=== PATIENT | male | born 1945 | race Caucasian/White ===

== ENCOUNTER 2016-12-10 11:02 | Outpatient (CLI) | payer MEDICARE, BC | END 2016-12-10 11:03 | disposition home or self-care (01) | DX: G47.33 Obstructive sleep apnea (adult) (pediatric) (principal) | CPT/HCPCS: 99203; G0463 ==

== ENCOUNTER 2017-01-31 20:23 | Outpatient (CLI) | payer MEDICARE, BC | END 2017-01-31 20:24 | disposition home or self-care (01) | DX: G47.33 Obstructive sleep apnea (adult) (pediatric) (principal); Z68.26 Body mass index [BMI] 26.0-26.9, adult ==

== ENCOUNTER 2017-02-25 15:00 | Outpatient (CLI) | payer MEDICARE, BC | END 2017-02-25 15:01 | disposition home or self-care (01) | DX: G47.33 Obstructive sleep apnea (adult) (pediatric) (principal) | CPT/HCPCS: 99213; G0463 ==

== ENCOUNTER 2017-03-18 19:47 | Outpatient (CLI) | payer MEDICARE, BC | END 2017-03-18 19:48 | disposition home or self-care (01) | DX: G47.33 Obstructive sleep apnea (adult) (pediatric) (principal); G47.61 Periodic limb movement disorder; Z68.26 Body mass index [BMI] 26.0-26.9, adult ==

== ENCOUNTER 2017-04-18 13:36 | Outpatient (CLI) | payer MEDICARE, BC | END 2017-04-18 13:37 | disposition home or self-care (01) | LOC: SC 13:36 | PROVIDERS: ATTEND Internal Medicine Pulmonary Disease | DX: G47.33 Obstructive sleep apnea (adult) (pediatric) (principal) | CPT/HCPCS: 99213; G0463; 99212 ==

== ENCOUNTER 2017-06-11 10:08 | Outpatient (CLI) | payer MEDICARE, BC | END 2017-06-11 10:09 | disposition home or self-care (01) | LOC: SC 10:08 | PROVIDERS: ATTEND Internal Medicine Pulmonary Disease | DX: G47.33 Obstructive sleep apnea (adult) (pediatric) (principal) | CPT/HCPCS: 99213; G0463; 99212 ==

== ENCOUNTER 2017-07-02 08:42 | Outpatient (CLI) | payer MEDICARE, BC ==
[2017-07-02 10:28] LABS: EOSINOPHILS % (AUTO) 0.7 %; HCT - HEMATOCRIT 40.4 % (42.0-52.0); HGB - HEMOGLOBIN 13.7 g/dL (14.0-18.0); LYMPHOCYTES # (AUTO) 1.5 10^3/uL (1.5-3.5); LYMPHOCYTES % (AUTO) 33.3 %; MEAN CORPUSCULAR HEMOGLOBIN 33.4 pg (27.0-31.0); MEAN CORPUSCULAR VOLUME 98.4 fL (80.0-94.0); MEAN PLATELET VOLUME 7.9 fL (7.4-11.4); MONOCYTES # (AUTO) 0.4 10^3/uL (0.0-1.0); MONOCYTES % (AUTO) 8.5 %; NEUTROPHILS # (AUTO) 2.5 10^3/uL (1.5-6.6); NEUTROPHILS % (AUTO) 56.5 %; NUCLEATED RED BLOOD CELLS AUTO 0.1 /100WBC; RED BLOOD COUNT 4.11 10^6/uL (4.70-6.10); RED CELL DISTRIBUTION WIDTH 12.5 % (12.0-15.0); UNCORRECTED WHITE BLOOD COUNT 4.5 x10^3/uL; WHITE BLOOD COUNT 4.5 x10^3/uL (4.8-10.8)
[2017-07-02 11:56] LABS: ALBUMIN/GLOBULIN RATIO 1.6 (1.0-2.2); BILIRUBIN,TOTAL 0.8 mg/dL (0.2-1.0); BUN - BLOOD UREA NITROGEN 16 mg/dL (6-20); CALCIUM 9.1 mg/dL (8.5-10.3); CARBON DIOXIDE - CO2 29 mmol/L (21-32); CHLORIDE 105 mmol/L (101-111); CHOL/HDL RATIO 2.1 (<5.0); CHOLESTEROL 195 mg/dL; CREATININE 0.8 mg/dL (0.6-1.2); GFR - MDRD 95 (>89); GLUCOSE 100 mg/dL (70-100); HDL CHOLESTEROL 93 mg/dL; POTASSIUM 4.2 mmol/L (3.5-5.0); SODIUM 140 mmol/L (135-145); TOTAL PROTEIN 6.9 g/dL (6.7-8.2); TRIGLYCERIDES 26 mg/dL
[2017-07-02 12:17] LABS: LDL CHOLESTEROL,DIRECT 89 mg/dL
== END 2017-07-02 08:43 | disposition home or self-care (01) ==
LOC: LAB.F 08:42
PROVIDERS: ATTEND Internal Medicine
DX: E55.9 Vitamin D deficiency, unspecified (principal); Z12.5 Encounter for screening for malignant neoplasm of prostate
CPT/HCPCS: 36415; 80053; 80061; 82306; 83721; 85025; G0103; 84153

== ENCOUNTER 2017-07-22 09:24 | Outpatient (CLI) | payer MEDICARE, BC | END 2017-07-22 09:25 | disposition home or self-care (01) | LOC: SC 09:24 | PROVIDERS: ATTEND Internal Medicine Pulmonary Disease | DX: G47.33 Obstructive sleep apnea (adult) (pediatric) (principal) | CPT/HCPCS: 99213; G0463; 99212 ==

== ENCOUNTER 2018-07-07 13:09 | Outpatient (CLI) | payer MEDICARE, BC | END 2018-07-07 13:10 | disposition home or self-care (01) | LOC: SC 13:09 | PROVIDERS: ATTEND Internal Medicine Pulmonary Disease | DX: G47.33 Obstructive sleep apnea (adult) (pediatric) (principal) | CPT/HCPCS: 99213; G0463; 99212 ==

== ENCOUNTER 2018-08-29 07:05 | Outpatient (CLI) | payer MEDICARE, BC ==
[2018-08-29 10:44] LABS: ALBUMIN/GLOBULIN RATIO 1.5 (1.0-2.2); ALKALINE PHOSPHATASE 63 IU/L (42-121); ALT ALANINE AMINOTRANSFERASE 16 IU/L (10-60); AST ASPARTATE AMINOTRANSFERASE 20 IU/L (10-42); BILIRUBIN,TOTAL 1.1 mg/dL (0.2-1.0); BUN - BLOOD UREA NITROGEN 16 mg/dL (6-20); CALCIUM 9.1 mg/dL (8.5-10.3); CARBON DIOXIDE - CO2 30 mmol/L (21-32); CHLORIDE 101 mmol/L (101-111); CHOL/HDL RATIO 1.9 (<5.0); CHOLESTEROL 194 mg/dL; CREATININE 0.8 mg/dL (0.6-1.2); GFR - MDRD 95 (>89); GLUCOSE 100 mg/dL (70-100); HDL CHOLESTEROL 101 mg/dL; SODIUM 138 mmol/L (135-145); TOTAL PROTEIN 6.6 g/dL (6.7-8.2)
[2018-08-29 11:06] LABS: LDL CHOLESTEROL,DIRECT 77 mg/dL; LDLD/HDL RATIO 0.8 (<3.6)
[2018-08-29 17:38] LABS: BASOPHILS # (AUTO) 0.1 10^3/uL (0.0-0.1); BASOPHILS % (AUTO) 1.2 %; EOSINOPHILS # (AUTO) 0.1 10^3/uL (0.0-0.7); EOSINOPHILS % (AUTO) 2.6 %; HGB - HEMOGLOBIN 14.1 g/dL (14.0-18.0); LYMPHOCYTES % (AUTO) 45.9 %; MEAN CORPUSCULAR HEMOGLOBIN 33.8 pg (27.0-31.0); MEAN CORPUSCULAR HGB CONC 33.9 g/dL (32.0-36.0); MEAN CORPUSCULAR VOLUME 99.7 fL (80.0-94.0); MEAN PLATELET VOLUME 8.2 fL (7.4-11.4); MONOCYTES # (AUTO) 0.4 10^3/uL (0.0-1.0); MONOCYTES % (AUTO) 9.1 %; NEUTROPHILS # (AUTO) 1.8 10^3/uL (1.5-6.6); NEUTROPHILS % (AUTO) 41.2 %; PLT - PLATELET COUNT 217 10^3/uL (130-450); RED BLOOD COUNT 4.18 10^6/uL (4.70-6.10); RED CELL DISTRIBUTION WIDTH 12.7 % (12.0-15.0); WHITE BLOOD COUNT 4.4 x10^3/uL (4.8-10.8)
== END 2018-08-29 07:06 | disposition home or self-care (01) ==
LOC: LAB.F 07:05
PROVIDERS: ATTEND Internal Medicine
DX: D68.2 Hereditary deficiency of other clotting factors (principal); E55.9 Vitamin D deficiency, unspecified; N40.0 Benign prostatic hyperplasia without lower urinary tract symptoms; E78.5 Hyperlipidemia, unspecified; Z12.5 Encounter for screening for malignant neoplasm of prostate
CPT/HCPCS: 36415; 80053; 80061; 82306; 83721; 84443; 85025; G0103; 84153

== ENCOUNTER 2019-09-11 07:15 | Outpatient (CLI) | payer MEDICARE, BC ==
[2019-09-11 10:51] LABS: HGB - HEMOGLOBIN 13.4 g/dL (14.0-18.0); MEAN CORPUSCULAR HEMOGLOBIN 33.9 pg (27.0-31.0); MEAN CORPUSCULAR HGB CONC 34.1 g/dL (32.0-36.0); MEAN CORPUSCULAR VOLUME 99.5 fL (80.0-94.0); MEAN PLATELET VOLUME 9.8 fL (7.4-11.4); RED BLOOD COUNT 3.95 10^6/uL (4.70-6.10); RED CELL DISTRIBUTION WIDTH 11.9 % (12.0-15.0)
[2019-09-11 11:09] LABS: ALBUMIN 3.9 g/dL (3.2-5.5); ALBUMIN/GLOBULIN RATIO 1.6 (1.0-2.2); ALKALINE PHOSPHATASE 59 IU/L (42-121); ALT ALANINE AMINOTRANSFERASE 17 IU/L (10-60); AST ASPARTATE AMINOTRANSFERASE 26 IU/L (10-42); BUN - BLOOD UREA NITROGEN 17 mg/dL (6-20); CALCIUM 9.1 mg/dL (8.5-10.3); CARBON DIOXIDE - CO2 29 mmol/L (21-32); CHLORIDE 107 mmol/L (101-111); CHOL/HDL RATIO 1.9 (<5.0); CHOLESTEROL 172 mg/dL; CREATININE 0.9 mg/dL (0.6-1.2); GFR - MDRD 82 (>89); GLUCOSE 102 mg/dL (70-100); HDL CHOLESTEROL 91 mg/dL; SODIUM 141 mmol/L (135-145); TOTAL PROTEIN 6.4 g/dL (6.7-8.2)
== END 2019-09-11 07:16 | disposition home or self-care (01) ==
LOC: LAB.S 07:15
PROVIDERS: ATTEND Internal Medicine
DX: E78.5 Hyperlipidemia, unspecified (principal); Z12.5 Encounter for screening for malignant neoplasm of prostate; D68.2 Hereditary deficiency of other clotting factors
CPT/HCPCS: 36415; 80053; 80061; 85027; G0103; 83721; 84153

== ENCOUNTER 2019-10-20 11:01 | Outpatient (CLI) | payer MEDICARE, BC ==
--- NOTE | 2019-10-20 11:43 | SLEEP CARE CONSULTATION ---
Information from patient questionnaire entered by Vilma Bradley. I have reviewed and concur with the information entered by Vilma Bradley. This document represents the service I personally performed and the decisions made by me, Chapin Henry MD, [facility]. History of Present Illness Previous diagnosis: Severe, Obstructive Sleep Apnea-Hypopnea Syndrome AHI: 31.3 Reason for follow up: annual Equipment type: CPAP Equipment obtained from: [employer] Prior sleep studies: Yes HPI additional information: HPI: Mr. Richards was diagnosed to have severe obstructive sleep apnea-hypopnea syndrome and returns today for annual follow up of CPAP therapy. The patient gets his supplies from [employer] and was fitted with a Respironics DreamWear nasal cushion mask. He continues to use the device nightly and all through the night. The compliance report shows that he uses the device 179 nights out of the past 180 nights, averaging 7.2 hours a night. The > 4 hour compliance rate for the past 180 days is 97.8%. He complains of not getting supplies but no particular problem with the device such as soreness on the face, dry nose, epistaxis, nasal congestion or headache. He thinks that the pressure of 5 - 9 cmH2O is comfortable. On the CPAP therapy he notices improvement in his sleep quality, and that he wakes up feeling fresher in the morning and more awake/alert during the day. [place] Sleepiness Scale score is 4. His notices no snore at all. The average residual AHI is 3.3 (was 3.4); and large leak, 0 L/min. CPAP Compliance Data - Data Reviewed with Patient Average duration of nightly device use: 7H 11M Compliance rate %: 97.8 Current pressure setting (cmH2O): 5-9 Humidity settin Heated hose settin Average residual AHI: 3.3 Average large leak: 0s Subjective Current pressure setting perceived as: comfortable Initial [place] Sleepiness Scale score: 6 Current [place] Sleepiness Scale score: 4 Allergies and Home Medications Drug allergies reviewed: Yes Home medication list reviewed: Yes Review of Systems Review of systems same as previous: Yes Physical Exam Weight: 185 lb Impression and Plan IMPRESSION: 1. Obstructive Sleep Apnea-Hypopnea Syndrome, severe, with the patient continuing to do well on nasal CPAP therapy. He has excellent compliance and significant clinical benefits. The current pressure appears effective and comfortable. Overall, he is very satisfied with treatment and plans to continue with it long-term. A new prescription will be made for supplies so that he may switch durable medical supplier. PLAN: 1. Continue with nasal CPAP therapy set at 5 - 9 cm H2O. 2. Try ResMed N30i mask 3. Prescription made for CPAP supplies and faxed to [employer] per patients request. 4. Return in one year for follow up or earlier if there is any problem with the treatment. I spent 100% of this 20 minute visit face to face with the patient with greater than 50% of this was spent time counseling the patient and coordination of care.
== END 2019-10-20 11:02 | disposition home or self-care (01) ==
LOC: SC 11:01
PROVIDERS: ATTEND Internal Medicine Pulmonary Disease
DX: G47.33 Obstructive sleep apnea (adult) (pediatric) (principal)
CPT/HCPCS: 99213; G0463; 99212

== ENCOUNTER 2019-11-27 08:26 | Outpatient (CLI) | payer MEDICARE, BC ==
[2019-11-27 10:50] LABS: RHEUMATOID FACTOR NEGATIVE (Negative)
== END 2019-11-27 08:27 | disposition home or self-care (01) ==
LOC: LAB.S 08:26
PROVIDERS: ATTEND Internal Medicine Rheumatology
DX: M25.50 Pain in unspecified joint (principal)
CPT/HCPCS: 36415; 85651; 86140; 86200; 86430

== ENCOUNTER 2020-11-01 13:21 | Outpatient (CLI) | payer MEDICARE, BC ==
--- NOTE | 2020-11-01 23:17 | SLEEP CARE CONSULTATION ---
Information from patient questionnaire entered by Rekha Plasencia. I have reviewed and concur with the information entered by Rekha Plasencia. This document represents the service I personally performed and the decisions made by me, Chapin Henry MD, [facility]. History of Present Illness Service Date and Time: 11/01/2020 1321 Previous diagnosis: Severe, Obstructive Sleep Apnea-Hypopnea Syndrome AHI: 31.3 (in 2017)(8.2 in 1989) Reason for follow up: annual (last seen 10/2019) Equipment type: CPAP Equipment obtained from: [employer] Prior sleep studies: Yes Year and Where: 2017 - [facility] Type of Sleep Study: Polysomnography HPI additional information: HPI: Mr. Richards was diagnosed to have severe obstructive sleep apnea-hypopnea syndrome and returns today for annual follow up of CPAP therapy. The patient gets his supplies from [employer]. He switched from a Respironics DreamWear nasal cushion mask to a ResMed N30i mask and found it more comfortable. He continues to use the device nightly and all through the night. The compliance report shows that he uses the device 180 nights out of the past 180 nights, averaging 7.1 hours a night. The > 4 hour compliance rate for the past 180 days is 100%. He complains of not getting supplies but no particular problem with the device such as soreness on the face, dry nose, epistaxis, nasal congestion or headache. He thinks that the pressure of 5 - 9 cmH2O is comfortable. On the CPAP therapy he notices improvement in his sleep quality, and that he wakes up feeling fresher in the morning and more awake/alert during the day. [place] Sleepiness Scale score is 3. His notices no snore at all. The average residual AHI is 3.1 (was 3.4); and average time in large leak per day is 0 second. The 90th percentile pressure is 8.3 cmH2O. CPAP Compliance Data - Data Reviewed with Patient Average duration of nightly device use: 7 hr 8 min Compliance rate %: 100 (180 days) Current pressure setting (cmH2O): 5-9 Humidity settin Heated hose settin Average residual AHI: 3.1 Average large leak: 0 Subjective Initial [place] Sleepiness Scale score: 6 (in 2017) Allergies and Home Medications Drug allergies reviewed: Yes Home medication list reviewed: Yes Review of Systems Review of systems same as previous: Yes Physical Exam Vital signs obtained and entered by: To minimize the risk of COVID-19 exposure, detailed exam was not performed. Height: 5 ft 10 in Weight: 185 lb Body Mass Index: 26.5 BMI Classification: Overweight Impression and Plan IMPRESSION: 1. Obstructive Sleep Apnea-Hypopnea Syndrome, severe, with the patient continuing to do well on nasal CPAP therapy. He has excellent compliance and significant clinical benefits. The current pressure appears effective and comfortable. Overall, he is very satisfied with treatment and plans to continue with it long-term. No adjustment is necessary today. PLAN: 1. Continue with nasal CPAP therapy set at 5 - 9 cm H2O. 2. Return in one year for follow up or earlier if there is any problem with the treatment. Visit Type: In Office Time Spent with Patient (minutes): 15 Provider Statement: I spent 100% of the Face to Face Visit with the patient with greater than 50% spent counseling the patient and coordination of care.
== END 2020-11-01 13:22 | disposition home or self-care (01) ==
LOC: SC 13:21
PROVIDERS: ATTEND Internal Medicine Pulmonary Disease
DX: G47.33 Obstructive sleep apnea (adult) (pediatric) (principal); E66.3 Overweight; Z68.26 Body mass index [BMI] 26.0-26.9, adult
CPT/HCPCS: 99213; G0463; 99212

== ENCOUNTER 2020-12-26 08:33 | Outpatient (CLI) | payer MEDICARE, BC ==
[2020-12-26 14:55] LABS: BASOPHILS % (AUTO) 0.8 %; EOSINOPHILS % (AUTO) 0.4 %; HGB - HEMOGLOBIN 13.9 g/dL (14.0-18.0); LYMPHOCYTES # (AUTO) 1.5 10^3/uL (1.5-3.5); LYMPHOCYTES % (AUTO) 28.2 %; MEAN CORPUSCULAR HEMOGLOBIN 33.6 pg (27.0-31.0); MEAN CORPUSCULAR HGB CONC 33.1 g/dL (32.0-36.0); MEAN CORPUSCULAR VOLUME 101.4 fL (80.0-94.0); MONOCYTES # (AUTO) 0.3 10^3/uL (0.0-1.0); MONOCYTES % (AUTO) 6.5 %; NEUTROPHILS # (AUTO) 3.3 10^3/uL (1.5-6.6); NEUTROPHILS % (AUTO) 63.9 %; PLT - PLATELET COUNT 221 10^3/uL (130-450); RED BLOOD COUNT 4.14 10^6/uL (4.70-6.10); RED CELL DISTRIBUTION WIDTH 12.4 % (12.0-15.0); WHITE BLOOD COUNT 5.2 x10^3/uL (4.8-10.8)
[2020-12-26 15:29] LABS: ALBUMIN 4.2 g/dL (3.2-5.5); ALBUMIN/GLOBULIN RATIO 1.6 (1.0-2.2); ALKALINE PHOSPHATASE 61 IU/L (42-121); ALT ALANINE AMINOTRANSFERASE 19 IU/L (10-60); AST ASPARTATE AMINOTRANSFERASE 23 IU/L (10-42); BUN - BLOOD UREA NITROGEN 13 mg/dL (6-20); CALCIUM 9.2 mg/dL (8.5-10.3); CARBON DIOXIDE - CO2 24 mmol/L (21-32); CHLORIDE 101 mmol/L (101-111); CHOL/HDL RATIO 1.8 (<5.0); CHOLESTEROL 195 mg/dL; CREATININE 0.8 mg/dL (0.6-1.2); GLUCOSE 108 mg/dL (70-100); HDL CHOLESTEROL 107 mg/dL; TOTAL PROTEIN 6.8 g/dL (6.7-8.2)
== END 2020-12-26 08:34 | disposition home or self-care (01) ==
LOC: LAB.S 08:33
PROVIDERS: ATTEND Internal Medicine
DX: E78.5 Hyperlipidemia, unspecified (principal); Z12.5 Encounter for screening for malignant neoplasm of prostate; D53.9 Nutritional anemia, unspecified
CPT/HCPCS: 36415; 80053; 80061; 85025; G0103; 83721; 84153

== ENCOUNTER 2021-07-25 07:32 | Outpatient (CLI) | payer MEDICARE, BC ==
[2021-07-25 14:35] LABS: BASOPHILS % (AUTO) 0.6 %; EOSINOPHILS # (AUTO) 0.1 10^3/uL (0.0-0.7); EOSINOPHILS % (AUTO) 1.3 %; HCT - HEMATOCRIT 41.5 % (42.0-52.0); HGB - HEMOGLOBIN 13.5 g/dL (14.0-18.0); LYMPHOCYTES # (AUTO) 1.5 10^3/uL (1.5-3.5); LYMPHOCYTES % (AUTO) 31.5 %; MEAN CORPUSCULAR HEMOGLOBIN 33.3 pg (27.0-31.0); MEAN CORPUSCULAR HGB CONC 32.5 g/dL (32.0-36.0); MEAN CORPUSCULAR VOLUME 102.5 fL (80.0-94.0); MONOCYTES # (AUTO) 0.5 10^3/uL (0.0-1.0); MONOCYTES % (AUTO) 9.7 %; NEUTROPHILS # (AUTO) 2.6 10^3/uL (1.5-6.6); NEUTROPHILS % (AUTO) 56.7 %; PLT - PLATELET COUNT 218 10^3/uL (130-450); RED BLOOD COUNT 4.05 10^6/uL (4.70-6.10); RED CELL DISTRIBUTION WIDTH 12.6 % (12.0-15.0); WHITE BLOOD COUNT 4.6 x10^3/uL (4.8-10.8)
[2021-07-25 14:53] LABS: ALBUMIN 3.9 g/dL (3.2-5.5); ALBUMIN/GLOBULIN RATIO 1.4 (1.0-2.2); ALKALINE PHOSPHATASE 59 IU/L (42-121); ALT ALANINE AMINOTRANSFERASE 16 IU/L (10-60); AST ASPARTATE AMINOTRANSFERASE 20 IU/L (10-42); BILIRUBIN,TOTAL 0.9 mg/dL (0.2-1.0); BUN - BLOOD UREA NITROGEN 17 mg/dL (6-20); CARBON DIOXIDE - CO2 28 mmol/L (21-32); CHLORIDE 102 mmol/L (101-111); CHOLESTEROL 180 mg/dL; CREATININE 0.8 mg/dL (0.6-1.2); GFR - MDRD 94 (>89); GLUCOSE 103 mg/dL (70-100); HDL CHOLESTEROL 91 mg/dL; LDL CHOLESTEROL,CALCULATED 81 mg/dL; LDL/HDL RATIO 0.9 (<3.6); POTASSIUM 4.3 mmol/L (3.5-5.0); SODIUM 137 mmol/L (135-145); TOTAL PROTEIN 6.6 g/dL (6.7-8.2); TRIGLYCERIDES 40 mg/dL; VLDL CHOLESTEROL 8 mg/dL
== END 2021-07-25 07:33 | disposition home or self-care (01) ==
LOC: LAB.S 07:32
PROVIDERS: ATTEND Internal Medicine
DX: Z79.899 Other long term (current) drug therapy (principal); Z12.5 Encounter for screening for malignant neoplasm of prostate; E78.5 Hyperlipidemia, unspecified; D53.9 Nutritional anemia, unspecified
CPT/HCPCS: 36415; 80053; 80061; 85025; G0103; 83721; 84153

== ENCOUNTER 2021-08-29 13:44 | Outpatient (CLI) | payer MEDICARE, BC ==
--- NOTE | 2021-08-29 16:04 | XRAY Report ---
PROCEDURE: Lumbar Spine w/Flex/Ext INDICATIONS: LOW BACK PAIN TECHNIQUE: 6 views of the lumbar spine acquired. COMPARISON: None. FINDINGS: L-SPINE: 5 [id number] vertebrae are present. Levocurvature of the thoracic lumbar spine, which may reflect degenerative change. Leftward disc height loss at L1-3 with associated endplate changes. Grade 1 anterolisthesis at L4-5, unchanged with flexion or extension. The sacroiliac joints appear patent. SOFT TISSUES: No focal abnormality. IMPRESSION: 1.No acute osseous abnormality. Reviewed by: Theron Watson MD on 08/29/2021 4:03 PM PDT Approved by: Theron Watson MD on 08/29/2021 4:03 PM PDT Station ID: [id number]
--- NOTE | 2021-08-30 11:24 | XRAY Report ---
PROCEDURE: Hand 3 View BILAT INDICATIONS: BILAT JOINT HAND PAIN TECHNIQUE: 3 views of each hand acquired. COMPARISON: None. FINDINGS: Bones: No fractures or dislocations. There is bilateral narrowing of the interphalangeal joints, in cluding severe narrowing of the right fifth proximal and distal and fourth distal interphalangeal sabas nts as well as severe narrowing of the left second through fifth distal interphalangeal joints. Moder ate to severe narrowing demonstrated within the remaining interphalangeal joints. There are associate d subchondral sclerosis and subchondral cystic changes. Gullwing deformities are demonstrated in the second through fifth distal interphalangeal joints bilaterally. No definite bony erosions. The joint spaces within the metacarpophalangeal and carpal joints appear preserved. Soft tissues: There is periarticular soft tissue swelling along the interphalangeal joints. No suspi cious soft tissue calcifications. IMPRESSION: 1. 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 Reviewed by: Lan Joseph MD on 08/30/2021 11:23 AM PDT Approved by: Lan Joseph MD on 08/30/2021 11:23 AM PDT Station ID: [id number]
== END 2021-08-29 13:45 | disposition home or self-care (01) ==
LOC: DI.S 13:44
PROVIDERS: ATTEND Internal Medicine
DX: M19.042 Primary osteoarthritis, left hand (principal); M19.041 Primary osteoarthritis, right hand; M54.50 Low back pain, unspecified

== ENCOUNTER 2021-09-22 10:45 | Outpatient (CLI) | payer MEDICARE, BC ==
[2021-09-22 17:32] LABS: RHEUMATOID FACTOR NEGATIVE (Negative)
== END 2021-09-22 10:46 | disposition home or self-care (01) ==
LOC: LAB.S 10:45
PROVIDERS: ATTEND Internal Medicine Rheumatology
DX: M79.643 Pain in unspecified hand (principal)
CPT/HCPCS: 36415; 85651; 86140; 86200; 86430

== ENCOUNTER 2022-02-19 10:39 | Outpatient (CLI) | payer MEDICARE, BC ==
--- NOTE | 2022-02-19 12:14 | SLEEP CARE CONSULTATION ---
Information from patient questionnaire entered by Arminda Stewart MA. I have reviewed and concur with the information entered by Arminda Stewart MA. This document represents the service I personally performed and the decisions made by me, Chapin Henry MD, [facility]. History of Present Illness Service Date and Time: 02/19/2022 1039 Previous diagnosis: Severe, Obstructive Sleep Apnea-Hypopnea Syndrome AHI: 31.3 (in 2017)(8.2 in 1989) Reason for follow up: annual (LAST SEEN 10/2020) Equipment type: CPAP Equipment obtained from: [employer] Prior sleep studies: Yes Year and Where: 2016 - [facility] Type of Sleep Study: Polysomnography HPI additional information: Mr. Richards was diagnosed to have severe obstructive sleep apnea-hypopnea syndrome and returns today for annual follow up of CPAP therapy. The patient gets his supplies from [employer]. He switched from a Respironics DreamWear nasal cushion mask to a ResMed N30i mask and found it more comfortable. He continues to use the device nightly and all through the night. The compliance report shows that he uses the device 180 nights out of the past 180 nights, averaging 7.1 hours a night. The > 4 hour compliance rate for the past 180 days is 100%. He complains of not getting supplies but no particular problem with the device such as soreness on the face, dry nose, epistaxis, nasal congestion or headache. He thinks that the pressure of 5 - 9 cmH2O is comfortable. On the CPAP therapy he notices improvement in his sleep quality, and that he wakes up feeling fresher in the morning and more awake/alert during the day. [place] Sleepiness Scale score is 3. His notices no snore at all. The average residual AHI is 3.1 (was 3.4); and average time in large leak per day is 0 second. The 90th percentile pressure is 8.3 cmH2O. Sleep Study - Results Type of Sleep Study: Polysomnography Prior sleep studies: Yes Year and Where: 2016 - [facility] CPAP Compliance Data - Data Reviewed with Patient Average duration of nightly device use: 7 HOURS 15 MINUTES Compliance rate %: 95 Current pressure setting (cmH2O): 5-9 Humidity settin Heated hose settin Average residual AHI: 3.5 Average large leak: 0 Subjective Initial [place] Sleepiness Scale score: 6 (in 2017) Current [place] Sleepiness Scale score: 2 (2021) Allergies and Home Medications Drug allergies reviewed: Yes Home medication list reviewed: Yes Allergy and home medication list: Allergies No Known Drug Allergies Allergy (Verified 05/18/14 16:57) Physical Exam Vital signs obtained and entered by: STEW DUCKWORTH Blood Pressure: 125/73 (PULSE 78, RESP 18, ) Cuff size: wrist Heart Rate: 77 O2 Saturation: 96 (PAPER MASK) Height: 5 ft 10 in Impression and Plan IMPRESSION: 1. Obstructive Sleep Apnea-Hypopnea Syndrome, severe, with the patient continuing to do well on nasal CPAP therapy. He has excellent compliance and significant clinical benefits. The current pressure appears effective and comfortable. Overall, he is very satisfied with treatment and plans to continue with it long-term. No adjustment is necessary today. PLAN: 1. Continue with nasal CPAP therapy set at 5 - 9 cm H2O. Return in May when he is eligible for a new machine. Follow up with Sleep Care in: 3 months Visit Type: In Office Time Spent with Patient (minutes): 15 Provider Statement: I spent 100% of the Face to Face Visit with the patient with greater than 50% spent counseling the patient and coordination of care.
[2022-02-19 12:15] VITALS: BP 125/73
== END 2022-02-19 10:40 | disposition home or self-care (01) ==
LOC: SC 10:39
PROVIDERS: ATTEND Internal Medicine Pulmonary Disease
DX: G47.33 Obstructive sleep apnea (adult) (pediatric) (principal)
CPT/HCPCS: 99212; G0463

== ENCOUNTER 2022-06-11 10:53 | Outpatient (CLI) | payer MEDICARE, BC ==
--- NOTE | 2022-06-11 11:15 | SLEEP CARE CONSULTATION ---
Information from patient questionnaire entered by Arminda Stewart MA. I have reviewed and concur with the information entered by Arminda Stewart MA. This document represents the service I personally performed and the decisions made by me, Chapin Henry MD, [facility]. History of Present Illness Service Date and Time: 06/11/2022 1053 Previous diagnosis: Severe, Obstructive Sleep Apnea-Hypopnea Syndrome AHI: 31.3 (in 2017)(8.2 in 1989) Reason for follow up: other (4 MONTH F/U, MATHEUS, FAN 04/30/2017, NEW RX? ) Equipment type: CPAP Equipment obtained from: [email or web address] Prior sleep studies: Yes Year and Where: 2016 - [facility] Type of Sleep Study: Polysomnography HPI additional information: Mr. Richards was diagnosed to have severe obstructive sleep apnea-hypopnea syndrome and returns today for annual follow up of CPAP therapy. The patient gets his supplies from [employer]. He switched from a Respironics DreamWear nasal cushion mask to a ResMed N30i mask and found it more comfortable. He continues to use the device nightly and all through the night. The compliance report shows that he uses the device 350 nights out of the past 365 nights, averaging 7.3 hours a night. The > 4 hour compliance rate for the past 365 days is 96%. He complains of not getting supplies but no particular problem with the device such as soreness on the face, dry nose, epistaxis, nasal congestion or headache. He thinks that the pressure of 5 - 9 cmH2O is comfortable. On the CPAP therapy he notices improvement in his sleep quality, and that he wakes up feeling fresher in the morning and more awake/alert during the day. [place] Sleepiness Scale score is 3. His notices no snore at all. The average residual AHI is 3.1 (was 3.7); and average time in large leak per day is 0 second. The 90th percentile pressure is 9 cmH2O. Sleep Study - Results Type of Sleep Study: Polysomnography Prior sleep studies: Yes Year and Where: 2016 - [facility] CPAP Compliance Data - Data Reviewed with Patient Average duration of nightly device use: 7 HOURS 16 MINUTES Compliance rate %: 96.7 (03/10/22-06/07/22) Current pressure setting (cmH2O): 5-9 Humidity settin Heated hose settin Average residual AHI: 3.9 Average large leak: 0 Subjective Missed days of use due to: reports: illness (APPENDEX REMOVED), travel Initial [place] Sleepiness Scale score: 6 (in 2017) Current [place] Sleepiness Scale score: 3 (06/11/2022) Allergies and Home Medications Known drug allergies: No Drug allergies reviewed: Yes Home medication list reviewed: Yes Allergy and home medication list: Allergies No Known Drug Allergies Allergy (Verified 05/18/14 16:57) Review of Systems Review of systems same as previous: Yes (APPENDECTOMY 03/2022) Physical Exam Vital signs obtained and entered by: STEW DUCKWORTH Blood Pressure: 124/78 (RIGHT, PULSE 72, RESP 20) Heart Rate: 72 O2 Saturation: 97 (PAPER MASK) Height: 5 ft 10 in Weight: 172 lb (CLOTHES) Body Mass Index: 24.7 BMI Classification: Healthy weight Impression and Plan IMPRESSION: 1. Obstructive Sleep Apnea-Hypopnea Syndrome, severe, with the patient continuing to do well on nasal CPAP therapy. He continues to have excellent compliance and significant clinical benefits. The current pressure appears effective and comfortable. Overall, he is very satisfied with treatment and plans to continue with it long-term. Because the CPAP is now older than the useful life of 5 years, I will order the patient a new one and make it an autoCPAP set between 5 and 9 cmH2O. PLAN: 1. Prescription made for an autoCPAP, heated humidifier, and related supplies. He will stay with [facility]. 2. Return for follow up after one month of using the CPAP. Visit Type: In Office Provider Statement: I spent 100% of the Face to Face Visit with the patient with greater than 50% spent counseling the patient and coordination of care.
[2022-06-11 11:16] VITALS: BP 124/78
== END 2022-06-11 10:54 | disposition home or self-care (01) ==
LOC: SC 10:53
PROVIDERS: ATTEND Internal Medicine Pulmonary Disease
DX: G47.33 Obstructive sleep apnea (adult) (pediatric) (principal)
CPT/HCPCS: 99213; G0463; 99212

== ENCOUNTER 2022-11-20 07:43 | Outpatient (CLI) | payer MEDICARE, BC ==
[2022-11-20 14:31] LABS: BASOPHILS % (AUTO) 0.7 %; EOSINOPHILS # (AUTO) 0.1 10^3/uL (0.0-0.7); EOSINOPHILS % (AUTO) 1.3 %; HCT - HEMATOCRIT 42.3 % (42.0-52.0); HGB - HEMOGLOBIN 14.1 g/dL (14.0-18.0); LYMPHOCYTES # (AUTO) 1.9 10^3/uL (1.5-3.5); LYMPHOCYTES % (AUTO) 35.1 %; MEAN CORPUSCULAR HEMOGLOBIN 33.6 pg (27.0-31.0); MEAN CORPUSCULAR HGB CONC 33.3 g/dL (32.0-36.0); MEAN CORPUSCULAR VOLUME 100.7 fL (80.0-94.0); MEAN PLATELET VOLUME 9.8 fL (7.4-11.4); MONOCYTES # (AUTO) 0.4 10^3/uL (0.0-1.0); MONOCYTES % (AUTO) 6.9 %; NEUTROPHILS # (AUTO) 3.1 10^3/uL (1.5-6.6); NEUTROPHILS % (AUTO) 55.8 %; PLT - PLATELET COUNT 211 10^3/uL (130-450); WHITE BLOOD COUNT 5.5 x10^3/uL (4.8-10.8)
[2022-11-20 14:50] LABS: ALBUMIN/GLOBULIN RATIO 1.5 (1.0-2.2); ALKALINE PHOSPHATASE 66 IU/L (42-121); ALT ALANINE AMINOTRANSFERASE 16 IU/L (10-60); AST ASPARTATE AMINOTRANSFERASE 19 IU/L (10-42); BILIRUBIN,TOTAL 1.2 mg/dL (0.2-1.0); BUN - BLOOD UREA NITROGEN 18 mg/dL (6-20); CALCIUM 8.7 mg/dL (8.5-10.3); CARBON DIOXIDE - CO2 29 mmol/L (21-32); CHLORIDE 101 mmol/L (101-111); CHOL/HDL RATIO 2.1 (<5.0); CHOLESTEROL 214 mg/dL; CREATININE 0.9 mg/dL (0.6-1.2); GFR - MDRD 82 (>89); GLUCOSE 100 mg/dL (70-100); HDL CHOLESTEROL 100 mg/dL; POTASSIUM 3.9 mmol/L (3.5-5.0); SODIUM 137 mmol/L (135-145); TOTAL PROTEIN 6.7 g/dL (6.7-8.2); TRIGLYCERIDES 33 mg/dL
[2022-11-20 14:58] LABS: THYROID STIMULATING HORMONE 2.86 uIU/mL (0.34-5.60)
== END 2022-11-20 07:44 | disposition home or self-care (01) ==
LOC: LAB.S 07:43
PROVIDERS: ATTEND Internal Medicine
DX: E78.5 Hyperlipidemia, unspecified (principal); Z79.899 Other long term (current) drug therapy; Z12.5 Encounter for screening for malignant neoplasm of prostate
CPT/HCPCS: 36415; 80053; 80061; 84443; 85025; G0103; 83721; 84153

== ENCOUNTER 2022-11-26 14:01 | Outpatient (CLI) | payer MEDICARE, BC ==
[2022-11-26 20:46] VITALS: BP 126/62
--- NOTE | 2022-11-26 20:46 | SLEEP CARE CONSULTATION ---
Information from patient questionnaire entered by Amy Jacinto. I have reviewed and concur with the information entered by Amy Jacinto. This document represents the service I personally performed and the decisions made by me, Chapin Henry MD, [facility]. History of Present Illness Service Date and Time: 11/26/2022 1401 Previous diagnosis: Severe, Obstructive Sleep Apnea-Hypopnea Syndrome AHI: 31.3 (in 2017)(8.2 in 1989) Reason for follow up: annual (LAST SEEN 11/01/2020) Equipment type: CPAP (PEACE) Equipment obtained from: [employer] Prior sleep studies: Yes Year and Where: 2016 - [facility] Type of Sleep Study: Polysomnography HPI additional information: IMPRESSION: 1. Obstructive Sleep Apnea-Hypopnea Syndrome, severe (AHI was 31.3 in 2017), with the patient continuing to do well on nasal CPAP therapy. He has excellent compliance and significant clinical benefits. The current pressure appears effective and comfortable. Overall, he is very satisfied with treatment and plans to continue with it long-term. No adjustment is necessary today. PLAN: 1. Continue with autoCPAP set at 5 - 9 cm H2O. 2. Try to lose weight 3. Return in one year for follow up or earlier if there is any problem with the treatment. Sleep Study - Results Type of Sleep Study: Polysomnography Prior sleep studies: Yes Year and Where: 2016 - [facility] Subjective Initial [place] Sleepiness Scale score: 6 (in 2017) Current [place] Sleepiness Scale score: 4 (11/26/22) Allergies and Home Medications Drug allergies reviewed: Yes Home medication list reviewed: Yes Allergy and home medication list: Allergies No Known Drug Allergies Allergy (Verified 05/18/14 16:57) Review of Systems Review of systems same as previous: Yes Physical Exam Vital signs obtained and entered by: AMY Landon MA Blood Pressure: 126/62 (LEFT ARM) Cuff size: regular Heart Rate: 74 O2 Saturation: 97 Height: 5 ft 10 in Weight: 186 lb 12.8 oz Body Mass Index: 26.8 BMI Classification: Overweight Impression and Plan IMPRESSION: 1. Obstructive Sleep Apnea-Hypopnea Syndrome, severe (AHI was 31.3 in 2017), with the patient continuing to do well on nasal CPAP therapy. He has excellent compliance and significant clinical benefits. The current pressure appears effective and comfortable. Overall, he is very satisfied with treatment and plans to continue with it long-term. No adjustment is necessary today. PLAN: 1. Continue with autoCPAP set at 5 - 9 cm H2O. 2. Try to lose weight 3. Return in one year for follow up or earlier if there is any problem with the treatment. Visit Type: In Office Provider Statement: I spent 100% of the Face to Face Visit with the patient with greater than 50% spent counseling the patient and coordination of care.
== END 2022-11-26 14:02 | disposition home or self-care (01) ==
LOC: SC 14:01
PROVIDERS: ATTEND Internal Medicine Pulmonary Disease
DX: G47.33 Obstructive sleep apnea (adult) (pediatric) (principal)
CPT/HCPCS: 99212; G0463

== ENCOUNTER 2023-11-20 07:14 | Outpatient (CLI) | payer MEDICARE ==
[2023-11-20 15:20] LABS: BASOPHILS % (AUTO) 0.8 %; EOSINOPHILS # (AUTO) 0.1 10^3/uL (0.0-0.7); EOSINOPHILS % (AUTO) 1.7 %; HGB - HEMOGLOBIN 13.7 g/dL (14.0-18.0); LYMPHOCYTES # (AUTO) 2.2 10^3/uL (1.5-3.5); LYMPHOCYTES % (AUTO) 44.9 %; MEAN CORPUSCULAR HEMOGLOBIN 33.2 pg (27.0-31.0); MEAN CORPUSCULAR HGB CONC 32.6 g/dL (32.0-36.0); MEAN CORPUSCULAR VOLUME 101.7 fL (80.0-94.0); MEAN PLATELET VOLUME 9.8 fL (7.4-11.4); MONOCYTES # (AUTO) 0.5 10^3/uL (0.0-1.0); MONOCYTES % (AUTO) 9.9 %; NEUTROPHILS # (AUTO) 2.1 10^3/uL (1.5-6.6); NEUTROPHILS % (AUTO) 42.5 %; PLT - PLATELET COUNT 225 10^3/uL (130-450); RED BLOOD COUNT 4.13 10^6/uL (4.70-6.10); RED CELL DISTRIBUTION WIDTH 12.7 % (12.0-15.0); WHITE BLOOD COUNT 4.8 x10^3/uL (4.8-10.8)
[2023-11-20 15:49] LABS: PSA TOTAL 0.704 ng/mL (0.000-2.000)
[2023-11-20 15:53] LABS: ALBUMIN 3.9 g/dL (3.2-5.5); ALBUMIN/GLOBULIN RATIO 1.8 (1.0-2.2); ALKALINE PHOSPHATASE 70 IU/L (42-121); ALT ALANINE AMINOTRANSFERASE 11 IU/L (10-60); AST ASPARTATE AMINOTRANSFERASE 17 IU/L (10-42); BILIRUBIN,TOTAL 0.6 mg/dL (0.2-1.0); BUN - BLOOD UREA NITROGEN 16 mg/dL (6-20); CARBON DIOXIDE - CO2 28 mmol/L (21-32); CHLORIDE 106 mmol/L (101-111); CHOL/HDL RATIO 1.7 (<5.0); CHOLESTEROL 168 mg/dL; CREATININE 0.8 mg/dL (0.6-1.3); GFR - MDRD 93 (>89); GLUCOSE 95 mg/dL (74-104); HDL CHOLESTEROL 100 mg/dL; POTASSIUM 4.4 mmol/L (3.5-4.5); SODIUM 139 mmol/L (135-145); TOTAL PROTEIN 6.1 g/dL (6.4-8.9); TRIGLYCERIDES 30 mg/dL (48-352)
[2023-11-20 15:55] LABS: THYROID STIMULATING HORMONE 2.94 uIU/mL (0.34-5.60)
[2023-11-21 08:10] LABS: HCV AB Non Reactive (Non Reactive)
== END 2023-11-20 07:15 | disposition home or self-care (01) ==
LOC: LAB.S 07:14
PROVIDERS: ATTEND Internal Medicine
DX: Z00.00 Encounter for general adult medical examination without abnormal findings (principal); E78.5 Hyperlipidemia, unspecified; R35.1 Nocturia; Z80.0 Family history of malignant neoplasm of digestive organs; Z65.8 Other specified problems related to psychosocial circumstances; Z86.010 Personal history of colon polyps; Z11.59 Encounter for screening for other viral diseases
CPT/HCPCS: 36415; 80053; 80061; 83721; 84153; 84443; 85025; 86803; 87522

== ENCOUNTER 2024-01-27 10:31 | Outpatient (CLI) | payer MEDICARE ==
--- NOTE | 2024-01-27 14:13 | SLEEP CARE CONSULTATION ---
Information from patient questionnaire entered by Amy Jacinto. I have reviewed and concur with the information entered by Aym Jacinto. This document represents the service I personally performed and the decisions made by me, Chapin Henry MD, [facility]. History of Present Illness Service Date and Time: 01/27/2024 1031 Previous diagnosis: Severe, Obstructive Sleep Apnea-Hypopnea Syndrome AHI: 31.3 (in 2017)(8.2 in 1989) Reason for follow up: annual (LAST SEEN 11/2022) Equipment type: CPAP (RESMED) Equipment obtained from: [employer] Prior sleep studies: Yes Year and Where: 2016 - [facility] Type of Sleep Study: Polysomnography HPI additional information: Mr. Richards was diagnosed to have severe obstructive sleep apnea-hypopnea syndrome and was called (telephone encounter) today for annual follow up of CPAP therapy. The patient gets his supplies from [employer]. He switched from a Respironics DreamWear nasal cushion mask to a ResMed N30i mask and found it more comfortable. He continues to use the ResMed AirSense 11 almost nightly and all through the night. The compliance report shows that he uses the device 275 nights out of the past 365 nights, averaging 7.5 hours a night. The > 4 hour compliance rate for the past 365 days is 75%. On the nights he does not use the ResMed AirSense 11, he uses his [place] Respironics DreamStation 2 autoCPAP which is set on the same pressure. He complains of not getting supplies but no particular problem with the device such as soreness on the face, dry nose, epistaxis, nasal congestion or headache. He thinks that the pressure of 5 - 9 cmH2O is comfortable. On the CPAP therapy he notices improvement in his sleep quality, and that he wakes up feeling fresher in the morning and more awake/alert during the day. [place] Sleepiness Scale score is 3. His notices no snore at all. The average residual AHI is 1.4 (was 3.1); and average air leak is 0 L/minute. The 90th percentile pressure is 9 cmH2O. Sleep Study - Results Type of Sleep Study: Polysomnography Prior sleep studies: Yes Year and Where: 2016 - [facility] CPAP Compliance Data - Data Reviewed with Patient Average duration of nightly device use: 7HRS 26MINS Compliance rate %: 75 (01/23/23-01/22/24) Current pressure setting (cmH2O): 5-9 Average residual AHI: 1.4 Subjective Initial [place] Sleepiness Scale score: 6 (in 2017) Current [place] Sleepiness Scale score: 9 (01/27/24) Allergies and Home Medications Drug allergies reviewed: Yes Home medication list reviewed: Yes Allergy and home medication list: Allergies No Known Drug Allergies Allergy (Verified 01/23/24 15:06) Review of Systems Review of systems same as previous: Yes (NO CHANGE) Physical Exam Vital signs obtained and entered by: AMY Landon MA Height: 5 ft 10 in (PER PT) Weight: 185 lb (PER PT) Body Mass Index: 26.5 BMI Classification: Overweight Impression and Plan IMPRESSION: 1. Obstructive Sleep Apnea-Hypopnea Syndrome, severe, with the patient continuing to do well on nasal CPAP therapy. He continues to have excellent compliance (between his two machines) and significant clinical benefits. The current pressure appears effective and comfortable. Overall, he is very satisfied with treatment and plans to continue with it long-term. No adjustment is necessary today. PLAN: 1. Continue with autoCPAP set at 5 9 cmH2O. 2. Return for a follow up in a year or earlier if there is any problem. Continue with device pressure at (cmH2O): 5 - 9 Follow up with Sleep Care in: 1 year Visit Type: Telehealth Phone Patient Location: Home Location of Provider: Office Time Spent with Patient (minutes): 15 Provider Statement: I spent 100% of the Telehealth Phone Call with the patient with greater than 50% spent counseling the patient and coordination of care.
== END 2024-01-27 10:32 | disposition home or self-care (01) ==
LOC: SC 10:31
PROVIDERS: ATTEND Internal Medicine Pulmonary Disease
DX: G47.33 Obstructive sleep apnea (adult) (pediatric) (principal)
CPT/HCPCS: 99442

== ENCOUNTER 2024-05-19 14:57 | Outpatient (CLI) | payer MEDICARE ==
--- NOTE | 2024-05-19 15:47 | XRAY Report ---
PROCEDURE: Knee 3V RT INDICATIONS: PREPATELLAR BURSITIS TECHNIQUE: 3 views of the knee(s) were acquired. COMPARISON: None. FINDINGS: Bones: No fractures or dislocations. No suspicious bony lesions. Soft tissues: There is mild thickening of the anterior soft tissues overlying the patellar quadriceps tendons. Mild to moderate effusion.. No suspicious soft tissue calcifications or masses. IMPRESSION: Anterior soft tissue thickening and effusion likely consistent with bursitis. No visualized acute fra cture or dislocation. However, occult injury cannot be excluded. Recommend short interval imaging fol low-up in 7-10 days as clinically indicated for additional evaluation. Reviewed by: Nikki Goodrich MD on 05/19/2024 3:46 PM PDT Approved by: Nikki Goodrich MD on 05/19/2024 3:46 PM PDT Station ID: [id number]
== END 2024-05-19 14:58 | disposition home or self-care (01) ==
LOC: DI 14:57
PROVIDERS: ATTEND Internal Medicine
DX: M70.41 Prepatellar bursitis, right knee (principal)

== ENCOUNTER 2024-06-09 14:14 | Outpatient (CLI) | payer MEDICARE ==
--- NOTE | 2024-06-10 19:59 | XRAY Report ---
PROCEDURE: Knee 1-2V RT INDICATIONS: RIGHT KNEE PAIN TECHNIQUE: 3 views of the knee was obtained. COMPARISON: None FINDINGS: Bones: No fractures or dislocations. No suspicious bony lesions. Mild medial compartment joint spac e narrowing Soft tissues: No knee joint effusion. No suspicious soft tissue calcifications or masses. IMPRESSION: Mild medial compartment joint space narrowing Reviewed by: Maximo Richards MD on 06/10/2024 6:57 PM AKDT Approved by: Maximo Richards MD on 06/10/2024 6:57 PM AKDT Station ID: [id number]
== END 2024-06-09 14:15 | disposition home or self-care (01) ==
LOC: DI 14:14
PROVIDERS: ATTEND Physician Assistant Surgical
DX: M25.561 Pain in right knee (principal)

== ENCOUNTER 2024-07-01 08:01 | Outpatient (CLI) | payer MEDICARE ==
--- NOTE | 2024-07-01 17:14 | MRI Report ---
PROCEDURE: Lumbar Spine WO INDICATIONS: LOW BACK PAIN, LUMBAR FACET ARTHROPATHY TECHNIQUE: Noncontrast sagittal T1 spin echo and T2 fast echo, sagittal STIR, axial T1 and T2 fast spin echo thr ough the lumbar spine. In cases with scoliosis, additional coronal T2 fast spin echo may be performe d. COMPARISON: X-ray lumbar spine 08/29/2021 FINDINGS: Image quality: Excellent. Alignment and Curvature: There is leftward scoliotic curvature with apex at L2. There is trace retro listhesis of L1 on L2, L2 on L3, L3 on L4 trace anterolisthesis of L4 on L5. Bone Marrow: Marrow is of normal overall signal. Moderate reactive endplate changes are present at L5-S1. No acute vertebral body compression fractures. Spinal Cord: Conus medullaris terminates at the L1 level. Visualized cord demonstrates normal signa l and size. Paraspinous Soft Tissues: No paravertebral masses. Discs: Multilevel moderate to severe disc desiccation is present most severe at L1-2, L2-3. T12-L1: Mild disc bulge with mild spinal stenosis. Mild bilateral foraminal narrowing with facet and ligamentum flavum hypertrophy. L1-L2: Mild disc bulge with mild spinal stenosis. Moderate bilateral foraminal narrowing with face t and ligamentum flavum hypertrophy. L2-L3: Mild disc bulge with mild to moderate spinal stenosis. Severe left and moderate to severe r ight foraminal narrowing with compression of the exiting left L2 nerve root. Facet and ligamentum fla vum hypertrophy. L3-L4: Mild disc bulge with mild spinal stenosis. Severe left and moderate to severe right foramina l narrowing with mild narrowing of the exiting left L3 nerve root. Facet and ligamentum flavum hypert rophy are present. L4-L5: Mild disc bulge with severe spinal stenosis and canal compression. Moderate bilateral forami nal narrowing, right greater than left with facet and ligamentum flavum hypertrophy. L5-S1: Mild disc bulge with small posterior central protrusion. No spinal stenosis. Moderate to sev ere bilateral foraminal narrowing with facet and ligamentum flavum hypertrophy. IMPRESSION: Multilevel disc bulges. Multilevel foraminal narrowing most severe at L2-3, L3-4 secondary to facet and ligamentum flavum art hropathy as well as scoliotic curvature. Multilevel spinal stenosis most severe at L4-5 secondary to disc bulge with tubing effect of facet/li gamentum flavum arthropathy. Reviewed by: Nikki Goodrich MD on 07/01/2024 5:12 PM PDT Approved by: Nikki Goodrich MD on 07/01/2024 5:12 PM PDT Station ID: [id number]
== END 2024-07-01 08:02 | disposition home or self-care (01) ==
LOC: DI 08:01
PROVIDERS: ATTEND Physical Medicine & Rehabilitation
DX: M47.816 Spondylosis without myelopathy or radiculopathy, lumbar region (principal); M41.9 Scoliosis, unspecified; M48.061 Spinal stenosis, lumbar region without neurogenic claudication; M51.36 Other intervertebral disc degeneration, lumbar region; M51.37 Other intervertebral disc degeneration, lumbosacral region; M48.07 Spinal stenosis, lumbosacral region; M51.35 Other intervertebral disc degeneration, thoracolumbar region; M48.05 Spinal stenosis, thoracolumbar region

== ENCOUNTER 2024-07-10 11:28 | Outpatient (CLI) | payer MEDICARE ==
[2024-07-10 11:50] LABS: BILIRUBIN,URINE NEGATIVE (NEGATIVE); GLUCOSE, URINE (UA) NEGATIVE (NEGATIVE); KETONES,URINE (UA) NEGATIVE (NEGATIVE); LEUKOCYTE ESTERASE, URINE NEGATIVE (NEGATIVE); NITRITE,URINE NEGATIVE (NEGATIVE); OCCULT BLOOD,URINE NEGATIVE (NEGATIVE); PROTEIN,URINE NEGATIVE (NEGATIVE); UROBILINOGEN,URINE 0.2 (NORMAL) E.U./dL (NORMAL)
[2024-07-10 11:53] LABS: CLARITY,URINE CLEAR (CLEAR)
[2024-07-10 11:54] LABS: BASOPHILS % (AUTO) 0.5 %; EOSINOPHILS % (AUTO) 0.5 %; HCT - HEMATOCRIT 39.8 % (42.0-52.0); HGB - HEMOGLOBIN 13.7 g/dL (14.0-18.0); LYMPHOCYTES # (AUTO) 1.2 10^3/uL (1.5-3.5); LYMPHOCYTES % (AUTO) 14.5 %; MEAN CORPUSCULAR HEMOGLOBIN 34.3 pg (27.0-31.0); MEAN CORPUSCULAR HGB CONC 34.4 g/dL (32.0-36.0); MEAN CORPUSCULAR VOLUME 99.7 fL (80.0-94.0); MEAN PLATELET VOLUME 9.3 fL (7.4-11.4); MONOCYTES # (AUTO) 0.7 10^3/uL (0.0-1.0); MONOCYTES % (AUTO) 8.5 %; NEUTROPHILS % (AUTO) 75.9 %; PLT - PLATELET COUNT 197 10^3/uL (130-450); RED BLOOD COUNT 3.99 10^6/uL (4.70-6.10); RED CELL DISTRIBUTION WIDTH 12.1 % (12.0-15.0); WHITE BLOOD COUNT 7.9 x10^3/uL (4.8-10.8)
[2024-07-10 12:05] LABS: BACTERIA,URINE Rare /HPF (None Seen); RBC,URINE None Seen /HPF (0-5); SQUAMOUS EPITHELIAL CELL,UR NONE SEEN (<= Few); WBC,URINE 0-3 /HPF (0-3)
[2024-07-10 12:07] LABS: ALBUMIN 4.1 g/dL (3.2-5.5); ALBUMIN/GLOBULIN RATIO 1.9 (1.0-2.2); BILIRUBIN,TOTAL 0.9 mg/dL (0.2-1.0); CALCIUM 9.1 mg/dL (8.5-10.3); CREATININE 0.9 mg/dL (0.6-1.3); TOTAL PROTEIN 6.3 g/dL (6.4-8.9)
== END 2024-07-10 11:29 | disposition home or self-care (01) ==
LOC: LAB 11:28
PROVIDERS: ATTEND Internal Medicine
DX: D75.89 Other specified diseases of blood and blood-forming organs (principal); R60.0 Localized edema; R60.9 Edema, unspecified; R03.0 Elevated blood-pressure reading, without diagnosis of hypertension
CPT/HCPCS: 36415; 80053; 81001; 82607; 82746; 83880; 85025; 87086